=== PATIENT | female | born 1980 | race Caucasian/White ===

== ENCOUNTER 2018-05-27 08:57 | Emergency (ER) | payer OTHER ==
[2018-05-27] MEDS ORDERED: PROMETHAZINE HCL INJ 25 MG/1 ML VIAL IM ONE (09:20)
[2018-05-27] MEDS ORDERED: MORPHINE SULFATE 10 MG/ML INJ IV ONE (09:21)
--- NOTE | 2018-05-27 09:22 | ER Document Report ---
ED Medical Screen (RME) - General Chief Complaint: Abdominal Pain Stated Complaint: BACK PAIN Time Seen by Provider: 05/27/18 09:17 Primary Care Provider: TEJINDER MEJIA MD [Primary Care Provider] - Follow up as needed TRAVEL OUTSIDE OF THE [place] IN LAST 30 DAYS: No - HPI Notes: 05/27/18 09:21 Patient is a 38-year-old female with no significant past medical history who presents emergency department complaining of nausea, vomiting, upper abdominal pain, and thoracic back pain that began somewhat suddenly 2 days ago. She does have associated diarrhea as well. Denies ESQUIVEL, fever, neck pain, URI, CP, SOB, or rash. I have treated and performed a rapid initial assessment of this patient. A comprehensive ED assessment and evaluation of the patient, analysis of test results and completion of medical decision making process will be conducted by additional ED providers. PHYSICAL EXAMINATION: GENERAL: No acute respiratory distress. Patient is actively vomiting. A&Ox4. Answers questions appropriately. LUNGS: Breath sounds clear to auscultation bilaterally and equal. No wheezes rales or rhonchi. HEART: Regular rate and rhythm without murmurs, rubs, gallops. ABDOMEN: Patient was actively vomiting could not palpate her abdomen at this time. No CVA tenderness. - Related Data Allergies/Adverse Reactions: soy [Soy] Allergy (Verified 05/27/18 08:58) Past Medical History - Past Medical History Cardiac Medical History: Denies: Hx Coronary Artery Disease, Hx Heart Attack, Hx Hypertension Pulmonary Medical History: Denies: Hx Asthma, Hx Bronchitis, Hx COPD, Hx Pneumonia Neurological Medical History: Denies: Hx Cerebrovascular Accident, Hx Seizures Renal/ Medical History: Reports: Hx Ovarian Cysts Musculoskeltal Medical History: Denies Hx Arthritis Past Surgical History: Reports: Hx Gynecologic Surgery - ovary removed. Denies: Hx Pacemaker - Immunizations Hx Diphtheria, Pertussis, Tetanus Vaccination: Yes - given today Physical Exam - Vital signs Vitals: Temp Pulse Resp BP Pulse Ox 97.8 F 95 26 H 119/75 99 05/27/18 09:04 05/27/18 09:04 05/27/18 09:04 05/27/18 09:04 05/27/18 09:04 Course - Vital Signs Vital signs: Temp Pulse Resp BP Pulse Ox 97.8 F 95 26 H 119/75 99 05/27/18 09:04 05/27/18 09:04 05/27/18 09:04 05/27/18 09:04 05/27/18 09:04 Doctor's Discharge - Discharge Referrals: TEJINDER MEJIA MD [Primary Care Provider] - Follow up as needed
[2018-05-27] MEDS: NORMAL SALINE 1000 ML 1,000 ML IV PRN ×2 (09:28→13:05)
[2018-05-27 09:47] LABS: ABSOLUTE EOSINOPHILS # (AUTO) 0.1 10^3/uL (0.0-0.6); ABSOLUTE LYMPHOCYTES (AUTO) 0.9 10^3/uL (0.5-4.7); ABSOLUTE MONOCYTES (AUTO) 0.6 10^3/uL (0.1-1.4); ABSOLUTE NEUT (AUTO) 10.6 10^3/uL (1.7-8.2); BASOPHILS % (AUTO) 0.2 % (0-2); EOSINOPHILS % (AUTO) 0.9 % (0-6); HEMATOCRIT 45.9 % (36.0-47.0); HEMOGLOBIN 15.8 g/dL (12.0-15.5); MEAN CORPUSCULAR HEMOGLOBIN 32.7 pg (27.0-33.4); MEAN CORPUSCULAR HGB CONC 34.4 g/dL (32.0-36.0); MEAN CORPUSCULAR VOLUME 95 fl (80-97); MONOCYTES % (AUTO) 5.1 % (3-13); PLATELET COUNT 265 10^3/uL (150-450); RED BLOOD COUNT 4.83 10^6/uL (3.72-5.28); RED CELL DISTRIBUTION WIDTH 12.8 % (11.5-14.0); SEGMENTED NEUTROPHILS % (AUTO) 86.8 % (42-78); TOTAL CELLS COUNTED % (AUTO) 100 %; WHITE BLOOD COUNT 12.2 10^3/uL (4.0-10.5)
--- NOTE | 2018-05-27 09:47 | ER Document Report ---
ED General - General Chief Complaint: Abdominal Pain Stated Complaint: BACK PAIN Time Seen by Provider: 05/27/18 09:17 Primary Care Provider: SOHA HASSAN MD [ACTIVE STAFF] - Follow up in 3-5 days MARJORIE ESCALANTE MD [ACTIVE STAFF] - Follow up in 3-5 days Mode of Arrival: Ambulatory Information source: Patient, Relative TRAVEL OUTSIDE OF THE [place] IN LAST 30 DAYS: No - HPI Notes: 38-year-old female presents to the ED with a medical history of pancreatitis for evaluation of epigastric and thoracic back pain that started in the middle of the night, states she is having nausea and vomiting, severe 10 out of 10, writhing in pain. Patient was given morphine in triage as well as IV fluids. Patient states pain comes and goes, denies any trauma to the abdomen or back, reports fevers and chills. Pain is worse after trying to eat, she does vomit thereafter. Last time patient was diagnosed with pancreatitis was when she was 10 years ago and states this is due to excessive vomiting. Patient not been evaluated by her primary care provider, [facility] in [place]. Denies fevers, chills, chest pain,palpitations, shortness of breath, dyspnea, diarrhea,hematuria,blurred vision, double vision, loss of vision, speech c hanges, LH, dizziness, syncope, headaches, wheezing, ST, URI, neck pain, weakness, bowel or bladder dysfunction, saddle anesthesia, numbness or tingling in bilateral upper or lower extremities equally, muscle paralysis, weakness in bilateral upper or lower extremities equally or rash. - Related Data Allergies/Adverse Reactions: No Known Drug Allergies Allergy (Verified 05/27/18 12:41) soy [Soy] Allergy (Verified 05/27/18 12:41) Past Medical History - General Information source: Patient, Relative - Social History Smoking Status: Former Smoker Family History: None Patient has suicidal ideation: No Patient has homicidal ideation: No - Past Medical History Cardiac Medical History: Denies: Hx Coronary Artery Disease, Hx Heart Attack, Hx Hypertension Pulmonary Medical History: Denies: Hx Asthma, Hx Bronchitis, Hx COPD, Hx Pneumonia Neurological Medical History: Denies: Hx Cerebrovascular Accident, Hx Seizures Renal/ Medical History: Reports: Hx Ovarian Cysts. Denies: Hx Peritoneal Dialysis Musculoskeletal Medical History: Denies Hx Arthritis Past Surgical History: Reports: Hx Gynecologic Surgery - ovary removed. Denies: Hx Pacemaker - Immunizations Hx Diphtheria, Pertussis, Tetanus Vaccination: Yes - given today Review of Systems - Review of Systems Constitutional: See HPI EENT: No symptoms reported Cardiovascular: No symptoms reported Respiratory: No symptoms reported Gastrointestinal: See HPI Genitourinary: No symptoms reported Female Genitourinary: No symptoms reported Musculoskeletal: No symptoms reported Skin: No symptoms reported Hematologic/Lymphatic: No symptoms reported Neurological/Psychological: No symptoms reported Physical Exam - Vital signs Vitals: Temp Pulse Resp BP Pulse Ox 97.8 F 95 26 H 119/75 99 05/27/18 09:04 05/27/18 09:04 05/27/18 09:04 05/27/18 09:04 05/27/18 09:04 - Notes Notes: PHYSICAL EXAMINATION: GENERAL: Well-appearing, well-nourished and in moderate distress HEAD: Atraumatic, normocephalic. EYES: Pupils equal round and reactive to light, extraocular movements intact, conjunctiva are normal. ENT: Nares patent, oropharynx clear without exudates. Moist mucous membranes. NECK: Normal range of motion, supple without lymphadenopathy LUNGS: Breath sounds clear to auscultation bilaterally and equal. No wheezes rales or rhonchi. HEART: Regular rate and rhythm without murmurs ABDOMEN: Soft, epigastric tenderness on palpation, nondistended abdomen. No guarding, no rebound. No masses appreciated. No CVA tenderness appreciated bilaterally. Female : deferred Musculoskeletal: Normal range of motion, no pitting or edema. No cyanosis. NEUROLOGICAL: Cranial nerves grossly intact. Normal speech, normal gait. Normal sensory, motor exams PSYCH: Normal mood, normal affect. SKIN: Warm, Dry, normal turgor, no rashes or lesions noted. Course - Re-evaluation Re-evalutation: 05/27/18 10:07 38-year-old female afebrile vitals stable moderate distress due to epigastric p ain that started last night after taking old flexeril for a back spasm that started at 1730 last night. Reports after taking flexeril around 1999, states she started to have epigastric pain after taking medication. IV pain medication of morphine given in triage did not diminished patient abdominal pain, still states pain is 10 out of 10, 1 mg of Dilaudid given IVP. on reevaluation, she states her pain is starting to come back. Patient given IV fluids as well CBC negative for leukocytosis or anemia, CMP negative for renal dysfunction, AST elevated, only 2 times of normal not 3 times normal, lipase is normal. First set troponin negative at 1000. EKG negative for acute STEMI, chest x-ray u nremarkable. CT abdomen pelvis with IV contrast does shows mild splenomegaly, no inflammatory changes to suggest cholecystitis with gallbladder, appendix visualized. Tenderness on palpation, no tenderness to right upper quadrant or left upper quadrant, no other abdominal tenderness no CVA tenderness on palpation. Will give patient GI cocktail and started on a Protonix drip, will check second troponin since symptoms started well over 18 hours ago. After performing a Medical Screening Examination, I estimate there is LOW risk for ACUTE APPENDICITIS, BOWEL OBSTRUCTION, ACUTE CHOLECYSTITIS, PERFORATED DIVERTICULITIS, INCARCERATED HERNIA, PANCREATITIS, PELVIC INFLAMMATORY DISEASE, PERFORATED ULCER, ECTOPIC , or TUBO-OVARIAN ABSCESS, thus I consider the discharge disposition reasonable. Also, there is no evidence or peritonitis, sepsis, or toxicity. I have reevaluated this patient multiple times and no significant life threatening changes are noted. The patient and I have discussed the diagnosis and risks, and we agree with discharging home with close follow- up with the understanding that symptoms and presentations can change. We also discussed returning to the Emergency Department immediately if new or worsening symptoms occur. We have discussed the symptoms which are most concerning (e.g., bloody stool, fever, changing or worsening pain, vomiting) that necessitate imm ediate return. - Vital Signs Vital signs: Temp Pulse Resp BP Pulse Ox 97.9 F 95 17 97/77 L 100 05/27/18 13:01 05/27/18 09:04 05/27/18 16:31 05/27/18 16:31 05/27/18 16:31 - Laboratory Result Diagrams: 05/27/18 09:25 05/27/18 09:25 Laboratory results interpreted by me: 05/27/18 05/27/18 05/27/18 09:25 09:25 13:52 WBC 12.2 H Hgb 15.8 H Seg Neutrophils % 86.8 H Lymphocytes % 7.0 L Absolute Neutrophils 10.6 H Chloride 108 H Glucose 137 H AST 70 H Alkaline Phosphatase 155 H Creatine Kinase Ur Leukocyte Esterase MODERATE H 05/27/18 14:55 WBC Hgb Seg Neutrophils % Lymphocytes % Absolute Neutrophils Chloride Glucose AST Alkaline Phosphatase Creatine Kinase 283 H Ur Leukocyte Esterase Discharge - Discharge Clinical Impression: Epigastric pain, Gastritis, Muscle spasm, UTI (urinary tract infection) Condition: Good Disposition: HOME, SELF-CARE Instructions: Abdominal Pain ([facility]), Antinausea Medication ([facility]), Low-Fat Diet ([facility]), Nitrofurantoin ([facility]), Oral Narcotic Medication ([facility]), Urinary Tract Infection ([facility]) Additional Instructions: Gastritis You have an inflammation of the stomach called gastritis. This commonly causes upper abdominal pain, nausea, and vomiting. In severe cases, bleeding of the stomach lining can occur. Gastritis can be caused by bacteria or viruses, alcohol, or stomach-irritating drugs. Begin with sips of clear liquids. Take increasing amounts of fluid over the first 24 hours. Then start small amounts of bland foods (such as dry toast, applesauce, mashed potato). Gradually resume your usual diet. You should take antacids every two hours until the pain has subsided. Acid-suppressing drugs may be prescribed as well. Avoid aspirin, caffeine, tobacco, and alcohol. If the abdominal pain worsens, or there is evidence of major bleeding in the stomach (such as black, tarry stool, bloody or black vomit, or lightheadedness), you should return immediately. Call the doctor if you aren't improved in 24 to 36 hours. Prescriptions: Methocarbamol [Robaxin 500 mg Tablet] 500 mg PO QID PRN #15 tablet PRN Reason: Nitrofurantoin Macrocrystal [Macrodantin] 100 mg PO BID #14 capsule Omeprazole 40 mg PO DAILY #30 capsule. Ranitidine HCl [Zantac 150 mg Tablet] 150 mg PO BID #60 tablet Referrals: SOHA HASSAN MD [ACTIVE STAFF] - Follow up in 3-5 days MARJORIE ESCALANTE MD [ACTIVE STAFF] - Follow up in 3-5 days
[2018-05-27] MEDS ORDERED: HYDROMORPHONE HCL INJ/PF 2 MG/ML AMPULE IV ONE ×2 (09:59→13:36)
[2018-05-27 10:18] LABS: ALANINE AMINOTRANSFERASE 40 U/L (9-52); ALBUMIN 4.1 g/dL (3.5-5.0); ALKALINE PHOSPHATASE 155 U/L (38-126); ANION GAP 9 (5-19); ASPARTATE AMINO TRANSFERASE 70 U/L (14-36); BILIRUBIN,DIRECT 0.3 mg/dL (0.0-0.4); BILIRUBIN,TOTAL 1.2 mg/dL (0.2-1.3); BLOOD UREA NITROGEN 8 mg/dL (7-20); CALCIUM 9.4 mg/dL (8.4-10.2); CARBON DIOXIDE 23 mmol/L (22-30); CHLORIDE 108 mmol/L (98-107); GLUCOSE 137 mg/dL (75-110); LIPASE 97.1 U/L (23-300); SODIUM 140.4 mmol/L (137-145)
[2018-05-27 10:44] LABS: CREATINE KINASE MB < 0.22 ng/mL (<4.55); TROPONIN I < 0.012 ng/mL
--- NOTE | 2018-05-27 13:02 | RADIOLOGY REPORT (SQ) ---
EXAM DESCRIPTION: CHEST SINGLE VIEW COMPLETED DATE/TIME: 05/27/2018 12:52 pm REASON FOR STUDY: epigastric abd pain COMPARISON: None. EXAM PARAMETERS: NUMBER OF VIEWS: One view. TECHNIQUE: Single frontal radiographic view of the chest acquired. RADIATION DOSE: NA LIMITATIONS: None. FINDINGS: LUNGS AND PLEURA: No opacities, masses or pneumothorax. No pleural effusion. Bilateral ni pple shadows noted. MEDIASTINUM AND HILAR STRUCTURES: No masses. Contour normal. HEART AND VASCULAR STRUCTURES: Heart normal in size. Normal vasculature. BONES: No acute findings. HARDWARE: None in the chest. OTHER: No other significant finding. IMPRESSION: NO ACUTE RADIOGRAPHIC FINDING IN THE CHEST. TECHNICAL DOCUMENTATION: JOB ID: [id number] [employer]- All Rights Reserved Reading location - IP/workstation name: [email or web address]
--- NOTE | 2018-05-27 13:06 | RADIOLOGY REPORT (SQ) ---
EXAM DESCRIPTION: CT ABD/PELVIS WITH IV ONLY COMPLETED DATE/TIME: 05/27/2018 12:47 pm REASON FOR STUDY: hx of pancreat/epigastri tender/n/v, severe pain COMPARISON: None. TECHNIQUE: CT scan of the abdomen and pelvis performed using helical scanning technique with dynamic intravenous contrast injection. No oral contrast. Images reviewed with lung, soft tissue, and bone windows. Reconstructed coronal and sagittal MPR images reviewed. Delayed images for evaluation of the urinary system also acquired. All images stored on PACS. All CT scanners at this facility use dose modulation, iterative reconstruction, and/or weight based d osing when appropriate to reduce radiation dose to as low as reasonably achievable (ALARA). [facility]: Dose Right [facility]: CareDose [facility]: Dose Right [facility]: Teradose 4D [facility]: Canesta CONTRAST TYPE AND DOSE: Not recorded here. Refer to the electroencephalogram technologist notes. c RENAL FUNCTION: BUN 8 creatinine 0.72 RADIATION DOSE: CT Rad equipment meets quality standard of care and radiation dose reduction techniq ues were employed. CTDIvol: 5.4 - 7.2 mGy. DLP: 666 mGy-cm.. LIMITATIONS: None. FINDINGS: LOWER CHEST: No significant findings. No nodules or infiltrates. LIVER: Normal size. No masses. No dilated ducts. SPLEEN: Mild splenomegaly. 13 cm. PANCREAS: No masses. No significant calcifications. No adjacent inflammation or peripancreatic fluid collections. Pancreatic duct not dilated. GALLBLADDER: No identified stones by CT criteria. No inflammatory changes to suggest cholecystitis. ADRENAL GLANDS: No significant masses or asymmetry. RIGHT KIDNEY AND URETER: No solid masses. No significant calcifications. No hydronephrosis or hyd roureter. LEFT KIDNEY AND URETER: No solid masses. No significant calcifications. No hydronephrosis or hydr oureter. AORTA AND VESSELS: No aneurysm. No dissection. Renal arteries, SMA, celiac without stenosis. RETROPERITONEUM: No retroperitoneal adenopathy, hemorrhage or masses. BOWEL AND PERITONEAL CAVITY: No masses or inflammatory changes. No free fluid or peritoneal masses. APPENDIX: Normal. PELVIS: An IUD is present in the uterus. No abnormal pelvic masses or fluid collections. ABDOMINAL WALL: No masses. No hernias. BONES: No significant or acute findings. OTHER: No other significant finding. IMPRESSION: Splenomegaly. No other significant findings in the abdomen or pelvis. TECHNICAL DOCUMENTATION: JOB ID: [id number] Quality ID # [id number]: Final reports with documentation of one or more dose reduction techniques (e.g., Au tomated exposure control, adjustment of the mA and/or kV according to patient size, use of iterative reconstruction technique) 2010 [email or web address]- All Rights Reserved Reading location - IP/workstation name: [email or web address]
[2018-05-27] MEDS ORDERED: PANTOPRAZOLE SODIUM 40 MG VIAL IV ONE (15:01)
[2018-05-27] MEDS ORDERED: METOCLOPRAMIDE HCL ORAL SOLN 10 MG/10 ML UDCUP PO ONE (15:01)
[2018-05-27] MEDS ORDERED: DIPHENHYDRAMINE HCL 25 MG/10 ML UDC PO ONE (15:01)
[2018-05-27] MEDS ORDERED: MAG HYDROX/AL HYDROX/SIMETH SUSP 30 ML UDCUP PO ONE (15:01)
[2018-05-27 15:29] LABS: CREATINE KINASE MB 3.18 ng/mL (<4.55)
[2018-05-27 15:33] LABS: TROPONIN I < 0.012 ng/mL
[2018-05-27 15:35] LABS: APPEARANCE,URINE SLIGHTLY-CLOUDY; BILIRUBIN,URINE NEGATIVE (NEGATIVE); COLOR,URINE YELLOW; GLUCOSE, URINE NEGATIVE (NEGATIVE); KETONES,URINE NEGATIVE (NEGATIVE); LEUKOCYTE ESTERASE,URINE MODERATE (NEGATIVE); NITRITE,URINE NEGATIVE (NEGATIVE); PROTEIN,URINE NEGATIVE (NEGATIVE); URINE SPECIFIC GRAVITY 1.041; UROBILINOGEN,URINE NEGATIVE mg/dL (<2.0)
[2018-05-27] MEDS ORDERED: HYDROCODONE/ACETAMINOPHEN 5-325 MG (6 TAB/ER DISP) PO PRN (15:44)
[2018-05-27 16:33] VITALS: BP 97/77
--- NOTE | 2018-05-27 21:49 | EKG REPORT ---
SEVERITY:- BORDERLINE ECG - SINUS RHYTHM ATRIAL PREMATURE COMPLEX BORDERLINE T ABNORMALITIES, ANTERIOR LEADS : Confirmed by: Marva Dotson MD 27-May-2018 21:48:49
[2018-05-29 06:38] LABS: HEPATITIS A AB IGM Negative (Negative); HEPATITIS B CORE AB IGM Negative (Negative); HEPATITS B SURFACE ANTIGEN Negative (Negative)
[2018-05-29 07:12] LABS: HEPATITIS C VIRUS ANTIBODY <0.1 s/co ratio (0.0-0.9)
== END 2018-05-27 16:30 | disposition home or self-care (01) ==
LOC: ER 08:57
DX: R10.13 Epigastric pain (principal); K29.70 Gastritis, unspecified, without bleeding; M62.838 Other muscle spasm; N39.0 Urinary tract infection, site not specified
CPT/HCPCS: 93005; 96376; 99284; 96372; 96361; 96374; 96375; 36415; 87086; 82553; 82550; 83690; 85025; 81025; 80053; 81001; 84484; 80074; 71045; 74177; 93010; J3490; J2270; J1170; S0164; J2550; J7030